=== PATIENT | male | born 1965 | race Caucasian/White ===

== ENCOUNTER 2016-08-18 23:54 | Emergency (ER) | payer SELFPAY ==
[~2016-08-18] VITALS: Ht 167.6 cm; Wt 77.0 kg
[2016-08-19] MEDS ORDERED: MORPHINE SULFATE 4 MG/ML CPJ (NOT FOR IM USE) IV STA (00:33)
[2016-08-19] MEDS ORDERED: ONDANSETRON HCL 4MG/2ML VIAL IV STA (00:33)
[2016-08-19] MEDS ORDERED: DEXT 5%/0.45% NACL 1000ML 1,000 ML IV ONE (00:33)
[2016-08-19 00:49] LABS: BASOPHILS % 0.7 % (0.0-2.0); EOSINOPHILS % 0.4 % (0.0-5.0); HEMATOCRIT. 39.1 % (42.0-52.0); HEMOGLOBIN. 13.4 g/dL (14.0-18.0); LYMPHOCYTES % 39.1 % (20.0-50.0); MEAN CORPUSCULAR VOLUME 81.5 fL (80.0-94.0); MEAN PLATELET VOLUME 7.3 fl (7.4-10.4); MONOCYTES % 5.8 % (2.0-8.0); PLATELET 214 x1000/uL (130-400); RED CELL DISTRIBUTION WIDTH 13.4 % (11.6-14.6)
[2016-08-19 00:56] LABS: CHLORIDE 100 mEq/L (98-107)
[2016-08-19 01:04] LABS: CARBON DIOXIDE 26 mEq/L (21-32)
[2016-08-19] MEDS ORDERED: SODIUM CHLORIDE 0.9% 1,000 ML IV ONE (01:19)
[2016-08-19 04:00] VITALS: BP 141/89
[2016-08-19] MEDS ORDERED: IOHEXOL-300 100 ML BOTTLE ONE (13:38)
[2016-08-19] MEDS ORDERED: SODIUM CHLORIDE 0.9% 10ML VIAL ONE (13:38)
== END 2016-08-19 04:44 | disposition home or self-care (01) ==
LOC: ER 08-19 00:17
DX: S20.211A Contusion of right front wall of thorax, initial encounter (principal); E11.9 Type 2 diabetes mellitus without complications; W19.XXXA Unspecified fall, initial encounter; Y93.89 Activity, other specified; Y99.8 Other external cause status; Y92.89 Other specified places as the place of occurrence of the external cause
CPT/HCPCS: 36415; 71010; 71260; 74177; 80053; 82962; 83690; 85025; 85610; 86850; 86900; 86901; 96361; 96374; 96375; 99285; A4216; J2270; J2405; J3490; J7030; Q9967; X7700; Z7610

== ENCOUNTER 2016-09-04 13:31 | Emergency (ER) | payer SELFPAY ==
[~2016-09-04] VITALS: Ht 157.5 cm; Wt 65.0 kg
[2016-09-04] MEDS ORDERED: SODIUM CHLORIDE 0.9% 1,000 ML IV ONE (14:54)
[2016-09-04] MEDS ORDERED: KETOROLAC 30MG/ML VIAL IV ONE (15:00)
[2016-09-04 15:18] LABS: BASOPHILS % 1.2 % (0.0-2.0); EOSINOPHILS % 0.8 % (0.0-5.0); HEMATOCRIT. 34.2 % (42.0-52.0); HEMOGLOBIN. 11.7 g/dL (14.0-18.0); MEAN CORPUSCULAR HEMOGLOBIN 28.1 pg (28.0-32.0); MEAN CORPUSCULAR VOLUME 82.6 fL (80.0-94.0); MEAN PLATELET VOLUME 6.6 fl (7.4-10.4); MONOCYTES % 4.9 % (2.0-8.0); NEUTROPHILS % 55.1 % (40.0-76.0); PLATELET 328 x1000/uL (130-400); RED BLOOD CELL COUNT 4.14 mill/uL (4.7-6.1); RED CELL DISTRIBUTION WIDTH 14.9 % (11.6-14.6)
[2016-09-04 15:20] LABS: CHLORIDE 102 mEq/L (98-107)
[2016-09-04 15:23] LABS: PROTHROMBIN TIME 10.6 sec
[2016-09-04 15:26] LABS: CLARITY URINE CLEAR (CLEAR); COLOR URINE YELLOW (YELLOW); GLUCOSE URINE 2+ (NEGATIVE); KETONES URINE NEGATIVE (NEGATIVE); LEUKOCYTE ESTERASE URINE NEGATIVE (NEGATIVE); NITRITE URINE NEGATIVE (NEGATIVE); OCCULT BLOOD URINE NEGATIVE (NEGATIVE); PROTEIN URINE NEGATIVE (NEGATIVE); SPECIFIC GRAVITY URINE 1.008 (1.005-1.030); UROBILINOGEN URINE 0.2 E.U./dL (0.2-1.0)
[2016-09-04 15:28] LABS: CARBON DIOXIDE 28 mEq/L (21-32)
[2016-09-04 15:38] LABS: *AMPHETAMINES SCREEN URINE NEGATIVE (NEGATIVE); *BARBITURATES SCREEN URINE NEGATIVE (NEGATIVE); *BENZODIAZEPINES SCREEN URINE NEGATIVE (NEGATIVE); *COCAINE SCREEN URINE NEGATIVE (NEGATIVE); CANNABINOID URINE SCREEN NEGATIVE (NEGATIVE); METHADONE URINE SCREEN NEGATIVE (NEGATIVE); OPIATES URINE SCREEN NEGATIVE (NEGATIVE); PHENCYCLIDINE URINE SCREEN NEGATIVE (NEGATIVE)
[2016-09-04 15:56] LABS: ETHANOL BLOOD 381 mg/dL
[2016-09-04 19:35] VITALS: BP 132/72
== END 2016-09-04 19:45 | disposition home or self-care (01) ==
LOC: ER 13:45
DX: R07.89 Other chest pain (principal); F10.20 Alcohol dependence, uncomplicated; Y90.8 Blood alcohol level of 240 mg/100 ml or more; R10.11 Right upper quadrant pain; E11.9 Type 2 diabetes mellitus without complications; Z59.0 Homelessness; Z86.59 Personal history of other mental and behavioral disorders
CPT/HCPCS: 36415; 71010; 74176; 76705; 80053; 80305; 81001; 83690; 85025; 85610; 85730; 96361; 96374; 99285; G0482; J1885; Z7610; J7030

== ENCOUNTER 2018-09-19 17:29 | Emergency (ER) | payer MEDICAID, OTHER ==
[~2018-09-19] VITALS: Ht 157.5 cm; Wt 60.0 kg
[2018-09-19] MEDS ORDERED: KETOROLAC 30MG/ML VIAL IV ONE (19:00)
[2018-09-19 19:19] LABS: BASOPHILS % 0.7 % (0.0-2.0); EOSINOPHILS % 0.3 % (0.0-5.0); HEMATOCRIT. 33.9 % (42.0-52.0); HEMOGLOBIN. 11.4 g/dL (14.0-18.0); LYMPHOCYTES % 24.4 % (20.0-50.0); MEAN CORPUSCULAR HEMOGLOBIN 28.6 pg (28.0-32.0); MEAN CORPUSCULAR VOLUME 84.6 fL (80.0-94.0); MEAN PLATELET VOLUME 7.2 fl (7.4-10.4); MONOCYTES % 6.7 % (2.0-8.0); NEUTROPHILS % 67.9 % (40.0-76.0); PLATELET 245 x1000/uL (130-400); RED BLOOD CELL COUNT 4.01 mill/uL (4.7-6.1); RED CELL DISTRIBUTION WIDTH 13.6 % (11.6-14.6)
[2018-09-19 19:22] LABS: CHLORIDE 98 mEq/L (98-107)
[2018-09-19 19:23] LABS: PROTHROMBIN TIME 10.1 sec (9.6-11.0)
[2018-09-19 19:26] LABS: ETHANOL BLOOD 237 mg/dL
[2018-09-19 20:00] LABS: CLARITY URINE CLEAR (CLEAR); COLOR URINE YELLOW (YELLOW); KETONES URINE TRACE (NEGATIVE); LEUKOCYTE ESTERASE URINE NEGATIVE (NEGATIVE); NITRITE URINE NEGATIVE (NEGATIVE); OCCULT BLOOD URINE TRACE (NEGATIVE); PH URINE 5.5 (4.5-8.0); PROTEIN URINE NEGATIVE (NEGATIVE); SPECIFIC GRAVITY URINE 1.004 (1.005-1.030); UROBILINOGEN URINE 0.2 E.U./dL (0.2-1.0)
[2018-09-19 21:01] VITALS: BP 135/69
== END 2018-09-19 21:10 | disposition home or self-care (01) ==
LOC: ER 19:19
DX: F10.229 Alcohol dependence with intoxication, unspecified (principal); R10.11 Right upper quadrant pain; E11.9 Type 2 diabetes mellitus without complications; Y90.7 Blood alcohol level of 200-239 mg/100 ml
CPT/HCPCS: 36415; 76705; 80053; 80320; 81003; 83690; 85025; 85610; 96374; 99284; J1885; G0480